=== PATIENT | female | born 1990 | race Caucasian/White ===

== ENCOUNTER 2018-09-29 10:25 | Inpatient (IN) | payer OTHER ==
[~2018-09-29] VITALS: Ht 154.9 cm; Wt 73.9 kg
[2018-09-29 11:16] VITALS: BP 110/63
[2018-09-29] MEDS ORDERED: PNV1TABL54 PO (11:20)
[2018-09-29] MEDS ORDERED: EPHEDrine SULFATE 50 MG/ML VIAL IM ONE (12:00)
[2018-09-29] MEDS ORDERED: FentaNYL CITRATE-PF 100 MCG/2 ML VIAL IVP ONE (12:00)
[2018-09-29] MEDS ORDERED: OXYTOCIN 10 UNITS/ML VIAL IM ONE (12:00)
[2018-09-29] MEDS ORDERED: MORPHINE SULFATE 4 MG/ML SYRINGE IVP ONE (12:00)
[2018-09-29] MEDS ORDERED: RINGERS SOLUTION,LACTATED 1,000 ML IV ONE (14:01)
[2018-09-29] MEDS ORDERED: METOCLOPRAMIDE HCL 5 MG/ML 2 ML VIAL IVP ONE (14:15)
[2018-09-29] MEDS ORDERED: CITRIC ACID/SODIUM CITRATE 30 ML SOLUTION UDCUP PO ONE (14:15)
[2018-09-29 14:32] LABS: BASOPHILS % (AUTO) 0.5 % (0.0-2.0); EOSINOPHILS % (AUTO) 0.2 % (1.0-6.0); HEMATOCRIT 35.9 % (36-46); HEMOGLOBIN 12.3 g/dL (12.0-16.0); LYMPHOCYTES # (AUTO) 2.2 K/uL (1.0-4.8); LYMPHOCYTES % (AUTO) 20.5 % (22.0-44.0); MEAN CORPUSCULAR HEMOGLOBIN 29.7 pg (26.0-34.0); MEAN CORPUSCULAR HGB CONC 34.1 G/dL (31.0-37.0); MEAN CORPUSCULAR VOLUME 87 fL (80-100); MONOCYTES # (AUTO) 0.7 K/uL (0.1-1.0); MONOCYTES % (AUTO) 6.2 % (2.0-9.0); NEUTROPHILS # (AUTO) 7.9 K/uL (1.8-7.7); NEUTROPHILS % (AUTO) 72.6 % (40.0-70.0); PLATELET COUNT (AUTO)-OB 237 K/uL (150-450); RED BLOOD CELL COUNT(AUTO) 4.13 MIL/uL (4.00-5.20)
[2018-09-29] MEDS ORDERED: HYDROmorphone 2 MG/ML SYRINGE IVP PRN (15:30)
[2018-09-29] MEDS ORDERED: MEPERIDINE-PF 25 MG/ML VIAL IVP PRN (15:30)
[2018-09-29] MEDS ORDERED: FentaNYL CITRATE-PF 100 MCG/2 ML VIAL IVP PRN ×2 (15:30→15:45)
[2018-09-29] MEDS ORDERED: MORPHINE SULFATE 10 MG/ML SYRINGE IVP PRN (15:45)
[2018-09-29] MEDS ORDERED: ACETAMINOPHEN/CODEINE 300-30 MG TABLET PO PRN (15:45)
[2018-09-29] MEDS ORDERED: DiphenhydrAMINE HCL 50 MG/ML VIAL IVP PRN (15:45)
[2018-09-29] MEDS ORDERED: NALOXONE HCL 0.4 MG/ML VIAL IVP PRN (15:45)
[2018-09-29] MEDS ORDERED: NALBUPHINE HCL 10 MG/ML VIAL IVP PRN ×2 (15:45)
[2018-09-29] MEDS ORDERED: ONDANSETRON HCL 4 MG/2 ML VIAL IVP PRN (15:45)
[2018-09-29] MEDS ORDERED: LANOLIN 7 GM OINTMENT TP PRN (15:45)
[2018-09-29] MEDS ORDERED: DEXTROSE 5%-0.45% SODIUM CHL 1,000 ML IV ONE (16:27)
[2018-09-29] MEDS: DEXTROSE 5%-0.45% SODIUM CHL 1,000 ML IV SCH ×3 (16:29→23:29)
[2018-09-29] MEDS ORDERED: NALBUPHINE HCL 10 MG/ML VIAL ONE (16:38)
[2018-09-29] MEDS: ACETAMINOPHEN 1000 MG/ISO-OSM 100 ML IV SCH (17:22)
[2018-09-29] MEDS ORDERED: OXYGEN THERAPY IH SCH ×3 (20:00)
[2018-09-29] MEDS: MAGNESIUM HYDROXIDE SUSPENSION 30 ML UDCUP PO SCH (20:50)
[2018-09-29] MEDS: KETOROLAC TROMETHAMINE 30 MG/ML VIAL IVP SCH (21:39)
[2018-09-30] MEDS: ACETAMINOPHEN 1000 MG/ISO-OSM 100 ML IV SCH (01:36)
[2018-09-30] MEDS: DEXTROSE 5%-0.45% SODIUM CHL 1,000 ML IV SCH (03:47)
[2018-09-30] MEDS: KETOROLAC TROMETHAMINE 30 MG/ML VIAL IVP SCH (04:11)
[2018-09-30] MEDS: MAGNESIUM HYDROXIDE SUSPENSION 30 ML UDCUP PO SCH ×2 (09:07→21:15)
[2018-09-30] MEDS: IBUPROFEN 800 MG TABLET PO SCH ×3 (11:02→23:13)
[2018-09-30] MEDS: ACETAMINOPHEN/CODEINE 300-30 MG TABLET PO PRN (11:03)
[2018-10-01] MEDS: IBUPROFEN 800 MG TABLET PO SCH ×4 (05:19→23:35)
[2018-10-01] MEDS: ACETAMINOPHEN/CODEINE 300-30 MG TABLET PO PRN (09:01)
[2018-10-01] MEDS: MAGNESIUM HYDROXIDE SUSPENSION 30 ML UDCUP PO SCH ×2 (09:59→21:06)
[2018-10-02] MEDS: IBUPROFEN 800 MG TABLET PO SCH ×2 (05:39→11:13)
[2018-10-02] MEDS: MAGNESIUM HYDROXIDE SUSPENSION 30 ML UDCUP PO SCH (09:00)
[2018-10-02] MEDS ORDERED: IBUP-2071 PO (09:47)
== END 2018-10-02 12:50 | disposition home or self-care (01) | DRG 788 ==
LOC: 4S 10:25 → OBSVTOIN 10:25 → 4S 09-30 15:33
PROVIDERS: ADMIT Obstetrics & Gynecology; ATTEND Obstetrics & Gynecology
PROC: 10D00Z1 Extraction of Products of Conception, Low, Open Approach (ICD-10-PCS; principal; 2018-09-29)
DX: O77.0 Labor and delivery complicated by meconium in amniotic fluid (principal); O65.1 Obstructed labor due to generally contracted pelvis; Z3A.40 40 weeks gestation of pregnancy; Z37.0 Single live birth
CPT/HCPCS: 86850; 86900; 86901; 87081; J0131; J0690; J1885; J2270; J2300; J2590; J2765; J3010; J3490